=== PATIENT | male | born 1960 | race Caucasian/White ===

== ENCOUNTER 2023-11-04 13:03 | Emergency (ER) | payer OTHER, SELFPAY ==
[2023-11-04 13:06] VITALS: BP 129/82
[2023-11-04 13:26] LABS: % Basophils 0.5 % (0-2); % Eosinophils 1.8 % (0-6); % Immature Granulocytes 0.4 % (0-0.5); % Lymphocytes 22.1 % (20.5-51.1); % Monocytes 8.7 % (1.7-9.3); % Neutrophils 66.5 % (42.2-75.2); Absolute Eosinophils 0.1 10^3/uL (0-0.7); Absolute Lymphocytes 1.2 10^3/uL (1.2-3.4); Absolute Monocytes 0.5 10^3/uL (0.1-0.6); Absolute Neutrophils 3.7 10^3/uL (1.4-6.5); Hematocrit 39.3 % (39.0-52.0); Hemoglobin 13.6 g/dL (13.0-18.0); Mean Corp Hgb Conc. 34.6 g/dL (33.0-37.0); Mean Corpuscular Hgb 30.2 pg (27.0-31.0); Mean Corpuscular Volume 87.1 fL (80.0-94.0); Mean Platelet Volume 8.6 fL (7.4-10.4); Nucleated Red Blood Cells % 0 % (-); Platelet Count 223 10^3/uL (130-400); Red Blood Cell Count 4.51 10^6/uL (4.70-6.10); Red Cell Dist. Width 13.6 % (11.5-14.5); White Blood Cell Count 5.5 10^3/uL (4.8-10.8)
[2023-11-04 14:49] VITALS: BP 131/76
[2023-11-04 14:53] VITALS: BMI 29.2
[2023-11-04 15:00] VITALS: BP 136/85
--- NOTE | 2023-11-04 15:13 | ED.GENMED ---
History of Present Illness
General
Chief Complaint: Chest Pain
Source: patient and spouse
Exam Limitations: none
Time Seen by Provider: 11/04/23 15:03
Nursing documentation reviewed up to this point in time: agreed with
Travel History
Have you had any contact with someone who has COVID-19?: No
Do you have any symptoms of coronavirus? Fever > 100 degrees, chills, cough, shortness of breath, sore throat, loss of taste or smell, muscle aches, or headache?: No
History of Present Illness
History of Present Illness:
63-year-old male presents emergency department complaining of chest pain started 2 days ago. Increased today when he was laying on a tractor at work. He states the pain radiates to his back. He has not had chest pain like this before.
Past History
Past History
ED Past Medical History: Other (RA, plantar fasciitis)
ED Past Surgical History: Orthopedic (He is having right shoulder surgery at [facility] next week)
Social History
Tobacco: Non-smoker
Alcohol: None
Drug: None
Personal:
Living: with family
Employment: Employed
Review of Systems
Review of Systems
Allergies reviewed?: Yes
All Other Systems: Not applicable
Constitutional: Reports no symptoms
EENT: Reports no symptoms
Respiratory: Reports no symptoms
Cardiac: Reports chest pain and palpitations
ABD/GI: Reports no symptoms
: Reports no symptoms
Musculoskeletal: Reports no symptoms
Skin: Reports no symptoms
Neurological: Reports no symptoms
Endocrine: Reports no symptoms
Hematologic/Lymphatic: Reports no symptoms
Psychiatric: Reports no symptoms
Phy Exam
Physical Exam
Physical Exam:
Physical Exam
General: no apparent distress, not acutely ill
Neck: supple. no meningeal signs. normal posterior pharynx
Heart: s1/s2 regular rate and rhythm, no murmur. equal radial
pulses.
HEENT: Pupils equal round reactive to light, EOMI
Lungs: no acute respiratory distress. clear bilaterally
Abdomen: normal bowel sounds. not tender. no CVAT
Neuro: alert and oriented. no focal neurological deficits cranial nerves II through XII intact
Skin: no rash
Psychiatric: well kept. interactive and cooperative
Extremities: no edema. no calf tenderness. negative homans. good distal pulses
Scores
Heart Score for Chest Pain Patients
STEMI patient?: No
History: Moderately Suspicious
ECG: Nonspecific Repolarization
Age: >45 - <65 years
Risk Factors: No Risk Factors
Troponin: </= Normal Limit
Heart Score for Chest Pain Patients: 3
Heart Score Risk: 2.5% MACE over next 6 weeks
Course
Orders/Labs/Results
Orders:
Orders
11/04/23 13:05
Electrocardiogram (*1) Urgent
Reason for Study: Chest Pain
EKG- Treatment ONCE
11/04/23 13:18
Complete Blood Count/With Diff Urgent
11/04/23 15:05
Comprehensive Metabolic Panel Routine
Lipase Routine
Comment: ADD ON
Troponin I Routine
11/04/23 15:12
Add On- LAB Urgent
Tests Added?: lipase
Aspirin Chewable [Low Strength Aspirin] 324 mg PO NOW STA
11/04/23 16:19
CT Chest/abd/pelvis Angio W/wo Urgent
Comment:
Reason For Exam: chest pain, radiating to back
Abnormal Lab Results
11/04/23
13:18
RBC 4.51 L 10^6/uL
(4.70-6.10)
11/04/23 13:18
11/04/23 15:05
Vital Signs
Initial and Last Documented VS:
Initial Vital Signs
Temp Pulse Resp BP Pulse Ox
98.2 F 86 18 129/82 95
11/04/23 13:06 11/04/23 13:06 11/04/23 13:06 11/04/23 13:06 11/04/23 13:06
Last Documented Vital Signs
Temp Pulse Resp BP Pulse Ox
98.2 F 57 9 125/82 95
11/04/23 13:06 11/04/23 17:00 11/04/23 17:00 11/04/23 17:00 11/04/23 17:00
MDM/Problems Addressed
Differential Diagnosis Includes:
PE, ACS, Aortic dissection
MDM/Problems Addressed:
63 yo male with chest pain radiating to back constant for 2 days. No signs PE or aortic dissection. Neg troponin. PVCs. Stable for d/c. Cardiology f/u-hotline.
*Radiology
Radiology exam reviewed: radiology read reviewed (ct chest abd/pelvis: nad)
*Pulse Oximetry
Patient hypoxic: no
*EKG
Interpreted by ED Provider?: Yes
EKG Intrepretation Date: 11/04/23
EKG Intrepretation Time: 13:08
Interpretation: abnormal
Comparison EKG: changes noted
Heart Rate: 70
Rate: normal
Rhythm: sinus and PVC's
[place]: left axis deviation
Interval: normal interval
QRS Pattern: wide non-specific and left vent hypertrophy
Ischemia: no ischemia
*Environmental Adviser Interpretation
Rate: normal
Interpretation: normal
Heart Rate: 77
Rhythm: sinus
*Critical Care Note
Total Time (30-74mins, 75-104mins- exclusive of procedures): Not Applicable
Patient Management
Social determinants of health affecting care: Living situation and Strong social support
Escalation/DeEscalation of care consider admission/obs:
admit not indicated
ED Attending Note
-
Portions of this chart may have been created with voice recognition software.� Occasional wrong word or��sound alike� substitutions may have occurred due to the inherent limitations of voice recognition software.
Discharge Plan
Departure
Patient Disposition: Home (Routine Discharge)
Date of Disposition: 11/04/23
Time of Disposition: 18:25
Patient with high blood pressure during this ER visit?: Yes
Condition: Good
Discharge Problem:
Chest pain
Instructions: Chest Pain CBC Follow Up, BLOOD PRESSURE
Prescriptions:
No Action
atorvastatin 40 mg Tablet
40 mg PO HS
gabapentin 600 mg Tablet
600 mg PO TID
methylprednisolone 4 mg Tablet
4 mg PO HS
leflunomide 20 mg Tablet
20 mg PO HS
tamsulosin 0.4 mg Capsule
0.4 mg PO HS
loratadine [Claritin] 10 mg Tablet
10 mg PO HS
cholecalciferol (vitamin D3) 25 mcg (1,000 unit) Tablet
25 mcg PO Q48H@2200
Enbrel SureClick 50 mg/mL (1 mL) Pen Injector
50 mg SC MO@1500
Referrals:
Shane Marquez MD [Family Provider] -
Interventions
Interventions:
*Risk Screen - Suicide Last Done: 11/04/23 13:06
*General Assessment Last Done: 11/04/23 15:09
*Neglect/Abuse Screening Last Done: 11/04/23 13:06
ED- Fall Risk Assessment Last Done: 11/04/23 15:08
*ED COVID-19 Vaccine History Last Done: 11/04/23 13:06
ED- Cardiac Assessment Last Done: 11/04/23 14:53
[2023-11-04] MEDS: LOW STRENGTH ASPIRIN 324 MG PO (15:16)
[2023-11-04 15:31] LABS: ALT (SGPT) 49 U/L (0-50); AST (SGOT) 41 U/L (17-59); Albumin 4.5 g/dl (3.5-5.0); Alkaline Phosphatase 60 U/L (38-126); Blood Urea Nitrogen 14 mg/dl (9-20); Calcium 9.5 mg/dl (8.4-10.2); Carbon Dioxide 26 mmol/L (22-30); Chloride 107 mmol/L (98-107); Estimated Creatinine Clearance > 125 ml/min; Glucose 85 mg/dl (70-99); Potassium 3.7 mmol/L (3.5-5.1); Sodium 137 mmol/L (135-145); Total Bilirubin 0.9 mg/dl (0.2-1.3); Total Protein 6.9 g/dl (6.3-8.2); eGFR > 60.00
[2023-11-04 15:39] LABS: Troponin I < 0.012 ng/ml
[2023-11-04 16:00] VITALS: BP 122/77
[2023-11-04 16:48] LABS: Lipase 151 U/L (23-300)
[2023-11-04 17:00] VITALS: BP 125/82
== END 2023-11-04 18:48 | disposition home or self-care (01) ==
LOC: EMR 13:03
PROVIDERS: Emergency Medicine; EMERGENCY PHYSICIAN Emergency Medicine; FAMILY PHYSICIAN Internal Medicine
DX: R07.9 Chest pain, unspecified (principal); R00.2 Palpitations; R03.0 Elevated blood-pressure reading, without diagnosis of hypertension
CPT/HCPCS: 99285; 71275; 74174; 80053; 83690; 84484; 85025; 93005; Q9967

== ENCOUNTER → 2023-12-16 15:23 | Outpatient (REF) | payer OTHER, SELFPAY | LOC: DHCBC MAIN 15:23 | PROVIDERS: ATTENDING PHYSICIAN Internal Medicine Cardiovascular Disease; FAMILY PHYSICIAN Internal Medicine | DX: R07.2 Precordial pain (principal); I49.3 Ventricular premature depolarization | CPT/HCPCS: 93306 ==

== ENCOUNTER → 2023-12-31 14:13 | Outpatient (REF) | payer OTHER, SELFPAY | LOC: HWRAD 14:13 | PROVIDERS: ATTENDING PHYSICIAN Internal Medicine Cardiovascular Disease; FAMILY PHYSICIAN Internal Medicine | DX: I71.21 Aneurysm of the ascending aorta, without rupture (principal) | CPT/HCPCS: 71250 ==

== ENCOUNTER → 2024-08-10 10:44 | Outpatient (REF) | payer OTHER, SELFPAY | LOC: MRI 3T 10:44 | PROVIDERS: ATTENDING PHYSICIAN Neurological Surgery; FAMILY PHYSICIAN Internal Medicine | DX: M54.16 Radiculopathy, lumbar region (principal) | CPT/HCPCS: 72158; A9575 ==